=== PATIENT | male | born 1950 | race Caucasian/White ===

== ENCOUNTER → 2018-01-19 09:41 | Outpatient (CLI) | payer MEDICARE, SELFPAY ==
--- NOTE | 2018-01-19 09:56 | XR_ITS ---
XR chest 2V HISTORY: ITS.REASON: HTN, AMIODARONE THERAPY ORDERING PHYSICIAN: Referral Provider, PATIENT AGE: 67 years COMPARISON: None FINDINGS: The cardiomediastinal silhouette and pulmonary vascularity are within normal limits. Minimal lateral view there is nodularity along the infrahilar region. This may only be due to overlapping vessels. Follow-up recommended to exclude possibility of a developing nodule. No obvious nodule evident on the frontal view.. There are degenerative changes in the thoracic spine No acute bony abnormalities. IMPRESSION: 1. No acute finding. 2. No evidence of amiodarone lung toxicity. 3. Nodular density on the lateral view which may be due to vascular overlap. Recommend follow-up radiograph in 6-8 weeks to confirm stability. Alternatively, a CT scan could also performed
== END ==
PROVIDERS: PCP Family Medicine
DX: E78.49 Other hyperlipidemia (principal); Z79.899 Other long term (current) drug therapy
CPT/HCPCS: 71046

== ENCOUNTER → 2019-03-23 09:28 | Outpatient (CLI) | payer MEDICARE, SELFPAY ==
[2019-03-23 09:46] LABS: Basophils # 0.1 K/mm3 (0-0.2); Basophils % 0.7 % (0.1-2.0); Eosinophils # 0.2 K/mm3 (0.0-0.4); Eosinophils % 2.3 % (0.1-12.0); Hematocrit 49.7 % (42.0-52.0); Hemoglobin 16.7 g/dL (14.1-18.0); Lymphocytes # 2.1 K/mm3 (0.7-4.5); Mean Corpuscular HGB Conc 33.6 g/dL (31.8-35.4); Mean Corpuscular Hemoglobin 31.1 pg (27.0-31.2); Mean Corpuscular Volume 92.6 fl (80-94); Mean Platelet Volume 7.6 fl (7.4-10.4); Monocytes # 0.5 K/mm3 (0.1-1.0); Monocytes % 6.8 % (1.7-9.3); Neutrophils # 4.6 K/mm3 (1.8-7.8); Neutrophils % 62.2 % (37.0-80.0); Platelet Count 288 K/mm3 (142-424); Red Blood Count 5.37 M/mm3 (4.60-6.20); Red Cell Distribution Width 13.5 % (11.5-17.5); White Blood Count 7.4 K/mm3 (4.8-10.8)
[2019-03-23 12:27] LABS: Alanine Aminotransferase 36 U/L (12-78); Albumin Level 3.9 gm/dL (3.4-5.0); Alkaline Phosphatase 106 U/L (46-116); Anion Gap 16.8 mEq/L (5-15); Aspartate Amino Transferase 15 U/L (15-37); Bilirubin,Direct 0.2 mg/dL (0.0-0.2); Bilirubin,Indirect 0.5 mg/dL (0.0-0.9); Bilirubin,Total 0.7 mg/dL (0.2-1.0); Blood Urea Nitrogen 16 mg/dL (7-18); Carbon Dioxide 25 mmol/L (21.0-32.0); Chloride 103 mmol/L (98-107); Chol/HDL Ratio 2.6 (1-3.5); Cholesterol 172 mg/dL (140-200); Creatinine,Serum 0.96 mg/dL (0.70-1.30); Estimated Glomerular Filt Rate 78 ml/min (>60); GFR (African American) 94 ML/MIN (>60); HDL Cholesterol 67 mg/dL (27-67); LDL Cholesterol 87 mg/dL (0-130); Potassium 3.8 mmoL/L (3.5-5.1); Sodium 141 mmol/L (136-145); Thyroid Stimulating Hormone 2.33 uIU/ml (0.358-3.740); Total Protein,Serum 7.1 gm/dL (6.4-8.2); Triglycerides 89 mg/dL (30-200); VLDL Cholesterol 18 mg/dL (0-40)
[2019-03-23 12:34] LABS: Calcium 9.3 mg/dL (8.5-10.1); Glucose 137 mg/dL (74-106)
== END ==
PROVIDERS: Visit Provider Internal Medicine Cardiovascular Disease
DX: E78.49 Other hyperlipidemia (principal)
CPT/HCPCS: 36415; 80048; 80061; 80076; 84443; 85025

== ENCOUNTER → 2020-10-31 16:30 | Outpatient (CLI) | payer MEDICARE, SELFPAY ==
--- NOTE | 2020-10-31 16:40 | XR_ITS ---
PROCEDURE INFORMATION: Exam: XR Left Foot Exam date and time: 10/31/2020 4:40 PM Age: 69 years old Clinical indication: Left; Patient HX: Foot pain; Additional info: Lt foot pain (per PT, drs' office was closed at this time) TECHNIQUE: Imaging protocol: XR Left foot. Views: 3 or more views. COMPARISON: No relevant prior studies available. FINDINGS: Bones/joints: Degenerative changes of the ankle, midfoot and interphalangeal joints. Large calcaneal spur. Large enthesophyte at the Achilles tendon insertion. No acute fracture or dislocation. Soft tissues: Normal. IMPRESSION: Chronic changes described above.
== END ==
PROVIDERS: PCP Family Medicine; Visit Provider Family Medicine
DX: M79.672 Pain in left foot (principal)
CPT/HCPCS: 73630

== ENCOUNTER 2021-01-27 10:43 | Emergency (ER) | payer MEDICARE, SELFPAY ==
[2021-01-27 10:44] VITALS: BP 122/74; PULSE 75; RESP 24; TEMP 36.7; O2SAT 95; BMI 35.8
--- NOTE | 2021-01-27 11:14 | XR_ITS ---
PROCEDURE: XR CHEST 2V CLINICAL HISTORY: cough, soa COMPARISON: No exams were available for comparison FINDINGS: The lung ambriz are well expanded. There are subtle ill-defined opacities in the right perihilar region and right lower lobe. The right upper lung field and left lung ambriz are clear except for minimal discoid atelectasis at the left cardiophrenic angle. Cardiac size is normal and there is no pulmonary congestion and there is no pleural fluid. There is moderate degenerate change right shoulder with subacromial stenosis and spurring of the AC joint. IMPRESSION: Ill-defined opacities right lower lung field suggesting early diffuse pneumonic infiltrate Dictated by: Dr. Angelito Aponte MD 01/27/2021 11:31 Dr. Angelito Aponte MD in [place] 01/27/2021 11:31
--- NOTE | 2021-01-27 11:26 | HMH.EDUTC ---
[facility] [place] Disposition Clinical Impression: Pneumonia Qualifiers: Pneumonia type: due to unspecified organism Laterality: right Lung location: lower lobe of lung Qualified Code(s): J18.9 - Pneumonia, unspecified organism Disposition: Home, Self-Care Condition on Discharge: Good Instructions: Sinusitis, Acute Bronchitis, DI for Sinusitis, DI for Cough -- Adult Additional Instructions: ? Start antibiotic today. Be sure to complete entire prescription even if feeling better ? Monitor temp. Tylenol every 4 hours as needed and / or ibuprofen every 6 hours as needed ( As long as your primary care physician has told you that it ok to take both. For fever/aches/pains ER if no less than 101 despite Tylenol or Motrin ? Humidifier/vaporizer or hot steamy shower Go straight to ER if any worsening of shortness of breath or any life threatening symptoms *Tessalon Perles will not cause drowsiness but use at bedtime to help stop cough so that you may get some rest. Follow up IMMEDIATELY for new or worsening of symptoms OR no noticeable improvement over the next 48-72 hours. 911 immediately for any life threatening symptoms such as chest pain or difficulty breathing Prescriptions: Fluticasone Propionate [Flonase 50mcg nasal spray 16gm] 1 spr NS DAILY #1 each Transmission Status: Received by [id number] Cefdinir [Omnicef 300mg Capsule] 300 mg PO BID #20 cap Transmission Status: Received by [id number] Benzonatate [Tessalon Perle 100mg Cap*] 100 mg PO TID PRN #30 cap PRN Reason: Cough Transmission Status: Received by [id number] Referrals: Dino Miller MD [Primary Care Provider] - As needed Time of Disposition: 11:57 Medical Decision Making - Andre Inquiry Pt receiving controlled substance: No Andre was queried for this patient: No Vital Signs: 01/27/21 10:44 01/27/21 11:31 Temperature 98.1 F 98.1 F Temperature Source Oral Oral Pulse Rate 75 Pulse Rate [Left Radial] 75 Respiratory Rate 24 24 Blood Pressure 122/74 Blood Pressure [Right Arm] 122/74 Blood Pressure Mean [Right Arm] 90 Blood Pressure Source [Right Arm] Automatic Cuff Blood Pressure Position [Right Arm] Sitting 02 Sat by Pulse Oximetry 95 Oxygen Delivery Method Room Air Orders (Tests/Meds): ED MEDICATIONS Discontinued Medications Generic Name Dose Route Start Last Admin Trade Name David PRN Reason Stop Dose Admin Ceftriaxone Sodium 1 gm 01/27/21 11:51 01/27/21 12:13 Ceftriaxone 1gm Vial IM 01/27/21 11:52 1 gm ONCE ONE Administration Lidocaine HCl 0 ml 01/27/21 11:53 01/27/21 12:13 Lidocaine 1% 5ml Pf Vial IM 01/27/21 11:54 2.5 ml ONCE ONE Administration - Radiology Data #1 Image(s): Chest Image Reviewed: Yes I have reviewed radiologist's interpretation Ill-defined opacities right lower lung field suggesting early diffuse pneumonic infiltrate [facility] [place] HPI - General Stated complaint: cough since 1007 Time Seen by Provider: 01/27/21 11:26 Mode of Arrival: Ambulatory Source of Information: Patient Limitations: No Limitations Description of Symptoms (Recalled from Triage Doc. by RN): bad cough, soa, cant really eat, weak after being in the garden 3 weeks ago HEENT Symptoms (Recalled from RN notes): Yes Resp Symptoms (Recalled from RN notes): Yes Skin Symptoms (Recalled from RN notes): No MS Symptoms (Recalled from RN notes): No Functional Status (Recalled from RN notes): na - History of Present Illness Provider Complaint: Patient states that he was working in the garden about 3 weeks ago bent over and noticed he was having some sinus pain and pressure and felt like his ears was full and stopped up States that since then he has continued to get worse and having a cough States that his sinuses will be congested then start running and then stop up again and feels like it is draining in the back of his throat States that at times he will cough so much it makes him feel SOB States that today
[2021-01-27 11:31] VITALS: BP 122/74; PULSE 75; RESP 24; TEMP 36.7; O2SAT 95
== END 2021-01-27 12:31 | disposition home or self-care (01) ==
PROVIDERS: Emergency Provider Nurse Practitioner; PCP Family Medicine
DX: J18.9 Pneumonia, unspecified organism (principal)
CPT/HCPCS: G0463; 71046; 96372; 99202

== ENCOUNTER → 2021-02-13 12:27 | Outpatient (CLI) | payer MEDICARE, SELFPAY ==
--- NOTE | 2021-02-13 12:33 | XR_ITS ---
PROCEDURE: XR CHEST 2V CLINICAL HISTORY: PNEUMONIA OF RT LOWER LOBE DUE TO INFECTIOUS ORGANISM COMPARISON: CR XR CHEST 2V from 01/27/2021 FINDINGS: There has been clearing of the minimal ill-defined infiltrate in the right perihilar region, minimal ill-defined infiltrate remains at the right base. The right upper lung field and left lung ambriz are clear. Cardiac size is normal and vascularity is normal and there is no pleural fluid. IMPRESSION: Resolving minimal pneumonic infiltrate right lower lobe Dictated by: Dr. Angelito Aponte MD 02/13/2021 12:56 Dr. Angelito Aponte MD in [place] 02/13/2021 12:56
== END ==
PROVIDERS: PCP Nurse Practitioner; Visit Provider Nurse Practitioner
DX: J18.9 Pneumonia, unspecified organism (principal)
CPT/HCPCS: 71046

== ENCOUNTER → 2021-03-30 09:20 | Outpatient (POV) | payer MEDICARE, SELFPAY ==
[2021-03-30 09:53] VITALS: BP 170/93; PULSE 72; RESP 18; O2SAT 96; BMI 35.2
--- NOTE | 2021-03-30 10:11 | HMH.PMCON ---
Assessment and Plan (1) Acute herpes zoster neuropathy Status: Acute Category: Medical Code(s): B02.23 - Postherpetic polyneuropathy (2) Polyneuropathy Status: Acute Category: Medical Code(s): G62.9 - Polyneuropathy, unspecified - Assessment and plan all Dx Assessment and Plan for all problems:: Assessment: 1. Acute herpes zoster 2. Postherpetic neuralgia 3. Postherpetic polyneuropathy Plan: I discussed with the patient that he will benefit from a peripheral nerve block over the T8-T9 dermatomal distribution on the right. However, the patient is reluctant to undergo injection therapy due to his fear of needles and would like to trial topical medication first. I will prescribe him a compound cream today and I discussed with him that he can contact her clinic should he decide to undergo a peripheral nerve block if the pain persists. I discussed with patient he can continue the gabapentin as prescribed by his primary care physician. We will follow-up with this patient in 1 month for reassessment of his chronic pain symptoms. His he states that he HPI - Data of Consult Consult date: 03/30/21 Requesting Physician: Mirta Bacon APRN - Consult Narrative Reason for consult: shingles relatedpain History of present illness: This patient is a very pleasant 70-year-old white male who presents today for initial consultation for shingles related pain. He states that the pain started almost a year and a half ago around [facility] and states that the pain has since persisted. He states the pain started in his mid back with a sharp shooting pain wrapping around his ribs anteriorly towards his stomach. He describes the pain as a very intense sharp burning pain. Has already taken valacyclovir and completed his course. He is currently taking Lyrica 150 mg 1 tablet p.o. 3 times daily but he states that the pain remains uncontrolled. He has not taken gabapentin but states that as of recently he was switched over to gabapentin from Lyrica due to insurance reasons. He states that he will start gabapentin tonight and gradually wean off Lyrica and uptitrate on the gabapentin as directed by his primary care physician. He has not undergone any injection therapy or topical creams. He states he is very reluctant to undergo injection therapy because he is afraid of needles. CC: Mirta Bacon APRN [facility] History I have reviewed the patient's past medical history: Yes *Have you ever received a pneumonia vaccine?: No *Have you received a flu vaccine this season?: No - *Social History Smoking Status: Never smoker Alcohol Intake: never *Occupational Status:: unemployed *Travel in the last 8 weeks: None Family Hx:: No significant family history Review of Systems - Review of Systems 14 point review of system was negative unless stated above in the [facility] Meds Home Medications Medication Instructions Recorded Confirmed Type Amiodarone HCl [Amiodarone 100mg 100 mg PO DAILY 01/27/21 03/30/21 History Tab] Apixaban [Eliquis] 5 mg PO BID 01/27/21 03/30/21 History Dapagliflozin Propanediol [Farxiga] 5 mg PO DAILY 01/27/21 03/30/21 History Furosemide [Lasix 20mg tab] 20 mg PO DAILY 01/27/21 03/30/21 History Glimepiride 4 mg PO DAILY 01/27/21 03/30/21 History Metoprolol Succinate [Metoprolol 50 mg PO DAILY 01/27/21 03/30/21 History Succinate 50mg Tablet*] Pregabalin 150 mg PO DAILY 01/27/21 03/30/21 History Triamterene/Hydrochlorothiazid 1 each PO DAILY 01/27/21 03/30/21 History [Triamterene-Hctz 37.5-25 mg Tb] Fluticasone Propionate [Flonase 1 spr NS DAILY 03/30/21 03/30/21 History 50mcg nasal spray 16gm] Allergies Allergy/AdvReac Type Severity Reaction Status Date / Time No Known Allergies Allergy Verified 01/27/21 11:14 Objective Vital signs: Pulse Resp BP Pulse Ox 72 18 170/93 H 96 03/30/21 09:53 03/30/21 09:53 03/30/21 09:53 03/30/21 09:53 Narrative: Physical exam: Genera
== END ==
PROVIDERS: Visit Provider Family Medicine
DX: B02.23 Postherpetic polyneuropathy (principal); G62.9 Polyneuropathy, unspecified
CPT/HCPCS: 99202; G0463

== ENCOUNTER → 2021-04-30 09:07 | Outpatient (POV) | payer MEDICARE, SELFPAY ==
[2021-04-30 09:28] VITALS: BP 185/90; PULSE 63; RESP 18; O2SAT 95; BMI 35.2
--- NOTE | 2021-04-30 09:47 | P.CONS_ITS ---
[facility] Pain Management SOAP Note Subjective:: Patient is a 70-year-old white male who presents today for follow-up. He was seen in the clinic on 03/30/2021 for postherpetic neuralgia. He does have pain at the T8-T9 area with radiation along the nerve root into the right flank and right upper quadrant area. He does rate his pain today a 3 out of 10. He says he has some days which are worse than others. He says the pain does progressively worsen when wearing clothing that touches the area as well as wind. He is currently on gabapentin which is giving him some relief. He is still reluctant to undergo any type of injective therapy at this time. Review of Systems General: No recent weight changes, no fever, no sleep disturbances Respiratory: No cough, no shortness of air, no recurring pulmonary infections Cardiovascular/peripheral vascular: No chest pain, no palpitations, no edema, no shortness of breath Gastrointestinal: No new onset incontinence, normal bowel movements reported Genitourinary: No new onset incontinence Musculoskeletal: Right mid back pain with radiation into right flank and right upper quadrant Psychiatric: [Normal mood/affect] Neurological: [Denies weakness in extremities], [denies balance issues] Objective:: Physical exam General: Alert and oriented x3, no acute distress, pleasant and cooperative Lungs: Respirations even and unlabored, symmetrical chest expansion Eyes: PERRL Musculoskeletal: Flexion and extension of thoracic [spine] somewhat guarded secondary to pain, normal gait noted Neurological: Speech clear, no gross sensory deficit Assessment:: Postherpetic neuralgia, postherpetic polyneuropathy Plan:: Patient is still reluctant to proceed with injective therapy. We will add Cymbalta 30 mg on to his medication regimen. He will take this once daily to see if this does help with his neuropathic pain. He says if the pain does worsen he will consider injective therapy. We will see him back in a month to see if the medication has helped. Risks and benefits of the medication have been explained in detail to the patient. If side effects do present with the medication, patient has been advised to stop the medication immediately and call the clinic. The patient has been advised to consult with his/her primary care provider and pharmacist regarding drug-drug interaction of medications currently prescribed. Patient has been instructed to contact the clinic with any concerns before the next appointment. Dr. Grimaldo has reviewed this note and agrees with this plan of care. This note was dictated using voice recognition software and make contain errors or omissions. [facility] History I have reviewed the patient's past medical history: Yes *Have you ever received a pneumonia vaccine?: No *Have you received a flu vaccine this season?: No - *Social History Smoking Status: Never smoker Alcohol Intake: never *Occupational Status:: unemployed *Travel in the last 8 weeks: None Family Hx:: No significant family history
== END ==
PROVIDERS: Visit Provider Clinical Nurse Specialist Family Health
DX: B02.29 Other postherpetic nervous system involvement; B02.23 Postherpetic polyneuropathy
CPT/HCPCS: 99212; G0463

== ENCOUNTER → 2021-05-28 09:24 | Outpatient (POV) | payer MEDICARE, SELFPAY ==
[2021-05-28 10:19] VITALS: BP 141/85; PULSE 65; RESP 18; O2SAT 95; BMI 35.2
--- NOTE | 2021-05-28 10:40 | P.CONS_ITS ---
[facility] Pain Management SOAP Note Subjective:: Patient is a very pleasant 70-year-old white male who presents today for follow- up. He is currently being managed for postherpetic neuralgia and polyneuropathy related to herpes zoster. He continues to experience pain in the mid torso region along the T8-T9 dermatomal distribution on the right but states that the pain has improved with his current pain regimen. He is currently taking gabapentin 300 mg 1 tablet p.o. 3 times daily that is prescribed by Dr. Miller as well as duloxetine 30 nightly that is prescribed by her clinic. He states that since he started the duloxetine his sharp stabbing pain has almost gone away. However, he states that the pain still remains intolerable at this time. He still reluctant to undergo any injection therapy to help with his chronic pain symptoms. He rates his pain today as 8 out of 10. Objective:: General: Alert and oriented x3, no acute distress, pleasant and cooperative Lungs: Resps E/U, symmetric chest expansion Eyes: PERRL Musculoskeletal: Deep tendon reflexes were normal in bilateral lower extremities. Motor exam was grossly intact in the bilateral lower extremities, tenderness to palpation over the T8-T9 dermatomal distribution on the right Neurological: Speech is clear, lubrication servicer equal, no gross sensory deficits Assessment:: Herpes zoster resulting in postherpetic neuralgia and polyneuropathy Plan:: I discussed with the patient he should continue duloxetine 30 mg nightly. I discussed with the patient that he may benefit from increasing gabapentin to 1 tablet in the morning, 1 tablet in the afternoon, and 2 tablets at bedtime however I discussed with him he should first contact Dr. Miller as this is the prescribing physician for this medication. However should there be any issues Dr. Miller can reach out to our clinic and if needed we can take over prescribing gabapentin. He does not need any refills at this time on his duloxetine. We will follow-up with this patient in 1 month for reassessment of his chronic pain symptoms and medication refills. [facility] #[id number] prior directions reviewed and appropriate. [facility] History *Have you ever received a pneumonia vaccine?: No *Have you received a flu vaccine this season?: No - *Social History Smoking Status: Never smoker Alcohol Intake: never *Occupational Status:: unemployed *Travel in the last 8 weeks: None Family Hx:: No significant family history
== END ==
PROVIDERS: Visit Provider Anesthesiology Pain Medicine
DX: B02.23 Postherpetic polyneuropathy (principal); B02.29 Other postherpetic nervous system involvement
CPT/HCPCS: 99212; G0463

== ENCOUNTER → 2021-06-25 08:46 | Outpatient (POV) | payer MEDICARE, SELFPAY ==
[2021-06-25 09:33] VITALS: BP 187/97; PULSE 65; RESP 20; TEMP 36.4; O2SAT 97; BMI 35.2
--- NOTE | 2021-06-25 09:44 | P.CONS_ITS ---
[facility] Pain Management SOAP Note Subjective:: Patient is a pleasant 70-year-old male who presents today for follow-up. He is currently being managed for postherpetic neuralgia and polyneuropathy related to herpes zoster around his torso. When we last saw this patient, we had recommended that the patient take his gabapentin 4 times a day to help with some of his postherpetic neuralgia. Since the change, patient states that he is about 20 to 30% better and has been able to reassess activity. He does say that he is slowly improving but he still continues to have tenderness around his torso. He is also taking duloxetine 30 mg at bedtime. Denies any side effects from these medications. He rates his pain today as 6 out of 10. Patient also states that he fell last Tuesday on his left wrist. He denies any worsening pain. It is swollen. He does not think it is broken since he can still move his wrist without difficulty. He will be seeing Dr. Miller this morning to evaluate this injury further. General: No recent weight changes, no fever, no sleep disturbances Respiratory: No cough, no shortness of air, no recurring pulmonary infections Cardiovascular/peripheral vascular: No chest pain, no palpitations, no edema, no shortness of breath Gastrointestinal: No new onset incontinence, normal bowel movements reported Genitourinary: No new onset incontinence Musculoskeletal: Mid torso pain, left wrist pain Psychiatric: [Normal mood/affect] Neurological: [Denies weakness in extremities], [denies balance issues] Objective:: General: Alert and oriented x3, no acute distress, pleasant and cooperative, [on room air] Lungs: Respirations even and unlabored, symmetrical chest expansion Eyes: PERRL Musculoskeletal: Mid torso is tender to palpation. His left wrist/hand has some swelling. Patient can flex and extend his wrist however there seemed to be some mild limitations may be because of the swelling. There is no noticeable contusion, change of color, temperature changes. Neurological: Speech clear, no gross sensory deficit Assessment:: Herpes zoster resulting in postherpetic neuralgia and polyneuropathy Left wrist pain Plan:: Patient states that he does feel like he is slowly getting better with the medications that is prescribed to him. He reports no issues with the medications. Dr. Miller is the one prescribing these medications. I discussed with the patient that if his postherpetic neuralgia gets worse, we can try to do some peripheral nerve blocks to help with some of these comfort. He is going to follow-up with Dr. Miller this morning about his left wrist. Follow-up in 1 month Patient has been instructed to contact the clinic with any concerns before the next appointment. Dr. Grimaldo has reviewed this note and agrees with this plan of care. This note was dictated using voice recognition software and make contain errors or omissions. [facility] History *Have you ever received a pneumonia vaccine?: No *Have you received a flu vaccine this season?: No - *Social History Smoking Status: Never smoker Alcohol Intake: never *Occupational Status:: retired *Travel in the last 8 weeks: None Family Hx:: No significant family history
== END ==
PROVIDERS: Visit Provider Student in an Organized Health Care Education/Training Program
DX: M25.532 Pain in left wrist; B02.23 Postherpetic polyneuropathy
CPT/HCPCS: 73110; 73130; 99212; G0463

== ENCOUNTER → 2021-06-25 11:03 | Outpatient (CLI) | payer MEDICARE, SELFPAY ==
--- NOTE | 2021-06-25 11:09 | XR_ITS ---
FINAL REPORT CLINICAL HISTORY: INJURY, fell off ladder, swelling FINDINGS: LEFT WRIST Three views demonstrate no definite acute fracture or dislocation. The visualized joint spaces are normally aligned. There is mild soft tissue swelling over the dorsum of the wrist. IMPRESSION: Mild soft tissue swelling with no definite acute bony abnormality. Reviewed, Interpreted and Dictated by Esvin Garnica MD Transcribed by Cassidy Guardado Authenticated by Esvin Garnica MD on 06/25/2021 12:57:34 PM [facility]
--- NOTE | 2021-06-25 11:09 | XR_ITS ---
FINAL REPORT CLINICAL HISTORY: INJURY, fell off ladder, swelling FINDINGS: LEFT HAND Three views of the left hand were obtained. No skin marker was placed to indicate point of pain. There is no acute fracture. There is no dislocation. There are mild to moderate hypertrophic changes in the DIP and PIP joints consistent with osteoarthritis. The soft tissues are unremarkable. IMPRESSION: No acute bony abnormality. Reviewed, Interpreted and Dictated by Esvin Garnica MD Transcribed by Cassidy Guardado Authenticated by Esvin Garnica MD on 06/25/2021 12:57:[address] [facility]
== END ==
PROVIDERS: PCP Family Medicine; Visit Provider Physician Assistant
DX: S69.92XA Unspecified injury of left wrist, hand and finger(s), initial encounter (principal)
CPT/HCPCS: 73110; 73130

== ENCOUNTER → 2021-07-23 08:40 | Outpatient (POV) | payer MEDICARE, SELFPAY ==
[2021-07-23 08:49] VITALS: BP 164/78; PULSE 74; RESP 18; TEMP 37.2; O2SAT 97; BMI 35.2
--- NOTE | 2021-07-23 09:26 | P.CONS_ITS ---
[facility] Pain Management SOAP Note Subjective:: Patient is a pleasant 70-year-old male who presents today for follow-up. He is currently being managed for postherpetic neuralgia and polyneuropathy related to herpes zoster around his right mid torso. Patient is currently taking duloxetine 30 mg at bedtime and gabapentin 300 mg 3 times a day that are prescribed by Dr. Miller. He says that he had a bad episode last week where it was very painful trying to put on his clothes. Today, patient states that he is about 70 to 80% better. Rates pain as 5 out of 10. [facility] #[id number] with Morphine equivalent of 0. Review of Systems: General: No recent weight changes, no fever, no sleep disturbances Respiratory: No cough, no shortness of air, no recurring pulmonary infections Cardiovascular/peripheral vascular: No chest pain, no palpitations, no edema, no shortness of breath Gastrointestinal: No new onset incontinence, normal bowel movements reported Genitourinary: No new onset incontinence Musculoskeletal: Mid back pain Psychiatric: [Normal mood/affect] Neurological: [Denies weakness in extremities], [denies balance issues] Objective:: Physical Exam: General: Alert and oriented x3, no acute distress, pleasant and cooperative, [on room air] Lungs: Respirations even and unlabored, symmetrical chest expansion Eyes: PERRL Musculoskeletal: Tenderness to palpation around the right mid torso Neurological: Speech clear, no gross sensory deficit Assessment:: Postherpetic neuralgia, polyneuropathy Plan:: Patient continues to have relief with the gabapentin 300 mg 3 times a day and Cymbalta 30 mg daily. Patient states that he was having restlessness in his sleep. I discussed with him that the Cymbalta can cause some restlessness. He can try stopping this medication for about a week. If his symptoms does not resolve he can continue the Cymbalta. I discussed with the patient that if he gets any flareups, he can certainly do peripheral nerve blocks. Patient is a bit hesitant to move forward with this injective therapy because he does not like needles. Follow-up in 3 months Patient has been instructed to contact the clinic with any concerns before the next appointment. Dr. Grimaldo has reviewed this note and agrees with this plan of care. This note was dictated using voice recognition software and make contain errors or omissions. [facility] History *Have you ever received a pneumonia vaccine?: No *Have you received a flu vaccine this season?: No - *Social History Smoking Status: Never smoker Alcohol Intake: never *Occupational Status:: retired *Travel in the last 8 weeks: None Family Hx:: No significant family history
== END ==
PROVIDERS: Visit Provider Student in an Organized Health Care Education/Training Program
DX: B02.29 Other postherpetic nervous system involvement; G62.9 Polyneuropathy, unspecified
CPT/HCPCS: 99212; G0463

== ENCOUNTER → 2022-03-30 12:30 | Outpatient (CLI) | payer MEDICARE, SELFPAY ==
[2022-03-30 18:43] LABS: Alanine Aminotransferase 41 U/L (12-78); Albumin Level 4.3 g/dl (3.5-5.0); Alkaline Phosphatase 113 U/L (38-126); Aspartate Amino Transferase 36 U/L (17-59); Bilirubin,Direct 0.2 mg/dl (0.0-0.4); Bilirubin,Indirect 0.6 mg/dL (0.0-0.9); Bilirubin,Total 0.8 mg/dl (0.2-1.3); Bilirubin,Unconjugated 0.6 mg/dL (0.0-1.1); Cholesterol 189 mg/dl (140-200); HDL Cholesterol 63 mg/dl (40-60); Total Protein,Serum 6.9 g/dl (6.3-8.2); Triglycerides 161 mg/dl (30-150); VLDL Cholesterol 32 mg/dL (0-40)
[2022-03-30 18:54] LABS: Direct LDL Cholesterol 95.28 mg/dL (100-129)
== END ==
PROVIDERS: PCP Nurse Practitioner; Visit Provider Nurse Practitioner
DX: E78.5 Hyperlipidemia, unspecified (principal)
CPT/HCPCS: 80061; 80076

== ENCOUNTER → 2022-09-16 10:23 | Outpatient (CLI) | payer MEDICARE, SELFPAY ==
[2022-09-16 18:52] LABS: Hemoglobin A1C 6.6 % (4.0-6.0)
[2022-09-16 19:08] LABS: Alanine Aminotransferase 32 U/L (12-78); Albumin Level 4.3 g/dl (3.5-5.0); Albumin/Globulin Ratio 1.7 (1.1-1.8); Alkaline Phosphatase 118 U/L (38-126); Anion Gap 18.5 mEq/L (5-15); Aspartate Amino Transferase 36 U/L (17-59); Bilirubin,Total 1.2 mg/dl (0.2-1.3); Blood Urea Nitrogen 20 mg/dl (9-20); Calcium 8.9 mg/dl (8.4-10.2); Carbon Dioxide 23 mmol/L (22.0-30.0); Chloride 102 mmol/L (98-107); Chol/HDL Ratio 2.4 (1-3.5); Cholesterol 158 mg/dl (140-200); Estimated Glomerular Filt Rate 95 ml/min (>60); GFR (African American) 115 ML/MIN (>60); Globulin 2.6 g/dL (1.3-3.2); Glucose 115 mg/dl (74-100); HDL Cholesterol 67 mg/dl (40-60); Potassium 3.5 mmoL/L (3.5-5.1); Sodium 140 mmol/L (136-145); Total Protein,Serum 6.9 g/dl (6.3-8.2); Triglycerides 105 mg/dl (30-150); VLDL Cholesterol 21 mg/dL (0-40)
[2022-09-16 19:20] LABS: Direct LDL Cholesterol 71.35 mg/dL (100-129)
[2022-09-16 19:38] LABS: Prostate Specific Ag Screen 9.5 ng/ml (0.0-4.0)
== END ==
PROVIDERS: PCP Nurse Practitioner; Visit Provider Nurse Practitioner
DX: E11.9 Type 2 diabetes mellitus without complications (principal); E78.5 Hyperlipidemia, unspecified; G47.00 Insomnia, unspecified; I10 Essential (primary) hypertension; Z12.5 Encounter for screening for malignant neoplasm of prostate; Z79.84 Long term (current) use of oral hypoglycemic drugs
CPT/HCPCS: 80053; 80061; 83036; 84443; G0103

== ENCOUNTER → 2023-03-10 07:11 | Outpatient (CLI) | payer MEDICARE, SELFPAY ==
[2023-03-10 20:08] LABS: Alanine Aminotransferase 31 U/L (12-78); Albumin Level 3.9 g/dl (3.5-5.0); Albumin/Globulin Ratio 1.5 (1.1-1.8); Alkaline Phosphatase 98 U/L (38-126); Anion Gap 11.7 mEq/L (5-15); Aspartate Amino Transferase 31 U/L (17-59); Bilirubin,Total 0.8 mg/dl (0.2-1.3); Blood Urea Nitrogen 21 mg/dl (9-20); Calcium 8.6 mg/dl (8.4-10.2); Carbon Dioxide 24 mmol/L (22.0-30.0); Chloride 103 mmol/L (98-107); Estimated Glomerular Filt Rate 83 ml/min (>60); GFR (African American) 100 ML/MIN (>60); Globulin 2.6 g/dL (1.3-3.2); Glucose 183 mg/dl (74-100); Potassium 3.7 mmoL/L (3.5-5.1); Sodium 135 mmol/L (136-145); Total Protein,Serum 6.5 g/dl (6.3-8.2)
[2023-03-10 22:06] LABS: Hemoglobin A1C 7.5 % (4.0-6.0)
== END ==
PROVIDERS: PCP Family Medicine; Visit Provider Family Medicine
DX: E11.9 Type 2 diabetes mellitus without complications (principal); Z79.84 Long term (current) use of oral hypoglycemic drugs
CPT/HCPCS: 80053; 83036

== ENCOUNTER 2023-07-21 10:16 | Outpatient (CLI) | payer MEDICARE, SELFPAY ==
[2023-07-21 18:31] LABS: Basophils # 0.1 K/mm3 (0-0.2); Basophils % 0.8 % (0.1-2.0); Eosinophils # 0.1 K/mm3 (0.0-0.4); Eosinophils % 2.2 % (0.1-12.0); Hemoglobin 17.8 g/dL (14.1-18.0); Lymphocytes # 1.7 K/mm3 (0.7-4.5); Lymphocytes % 26.9 % (10-50); Mean Corpuscular Hemoglobin 31.6 pg (27.0-31.2); Mean Corpuscular Volume 95.9 fl (80-94); Mean Platelet Volume 9.2 fl (7.4-10.4); Monocytes # 0.4 K/mm3 (0.1-1.0); Monocytes % 6.3 % (1.7-9.3); Neutrophils % 63.9 % (37.0-80.0); Platelet Count 251 K/mm3 (142-424); Red Blood Count 5.63 M/mm3 (4.60-6.20); Red Cell Distribution Width 14.3 % (11.5-17.5); White Blood Count 6.3 K/mm3 (4.8-10.8)
[2023-07-21 18:54] LABS: Microalbumin/Creatinine Ratio 6.6
[2023-07-21 18:57] LABS: Alanine Aminotransferase 32 U/L (12-78); Albumin Level 4.3 g/dl (3.5-5.0); Alkaline Phosphatase 90 U/L (38-126); Aspartate Amino Transferase 31 U/L (17-59); Bilirubin,Direct 0.2 mg/dl (0.0-0.4); Bilirubin,Indirect 0.8 mg/dL (0.0-0.9); Bilirubin,Unconjugated 0.7 mg/dL (0.0-1.1); Chol/HDL Ratio 3.5 (1-3.5); Cholesterol 192 mg/dl (140-200); Creatinine,Urine Random 103 mg/dL (Not Estab.); HDL Cholesterol 55 mg/dl (40-60); Total Protein,Serum 6.6 g/dl (6.3-8.2); Triglycerides 142 mg/dl (30-150); VLDL Cholesterol 28 mg/dL (0-40)
[2023-07-21 19:02] LABS: Alanine Aminotransferase 32 U/L (12-78); Albumin Level 4.1 g/dl (3.5-5.0); Albumin/Globulin Ratio 1.7 (1.1-1.8); Alkaline Phosphatase 90 U/L (38-126); Anion Gap 9.8 mEq/L (5-15); Aspartate Amino Transferase 31 U/L (17-59); Bilirubin,Total 0.8 mg/dl (0.2-1.3); Blood Urea Nitrogen 20 mg/dl (9-20); Calcium 9.2 mg/dl (8.4-10.2); Carbon Dioxide 25 mmol/L (22.0-30.0); Chloride 110 mmol/L (98-107); Estimated Glomerular Filt Rate 95 ml/min (>60); GFR (African American) 115 ML/MIN (>60); Globulin 2.4 g/dL (1.3-3.2); Glucose 146 mg/dl (74-100); Potassium 3.8 mmoL/L (3.5-5.1); Sodium 141 mmol/L (136-145); Total Protein,Serum 6.5 g/dl (6.3-8.2)
[2023-07-21 19:09] LABS: Direct LDL Cholesterol 90.55 mg/dL (100-129)
[2023-07-21 19:28] LABS: Prostate Specific Ag, Diagnost 13.1 ng/ml (0.0-4.0)
[2023-07-21 20:37] LABS: Hemoglobin A1C 7.4 % (4.0-6.0)
== END 2023-07-21 23:59 | disposition home or self-care (01) ==
LOC: LAB.DROPOF 07-22 10:24
PROVIDERS: Nurse Practitioner; PCP Family Medicine; Visit Provider Family Medicine
DX: E11.9 Type 2 diabetes mellitus without complications (principal); I10 Essential (primary) hypertension; E78.5 Hyperlipidemia, unspecified; R97.20 Elevated prostate specific antigen [PSA]; Z79.84 Long term (current) use of oral hypoglycemic drugs; Z87.891 Personal history of nicotine dependence; Z79.899 Other long term (current) drug therapy
CPT/HCPCS: 80053; 80061; 80076; 82043; 82570; 83036; 84153; 85025

== ENCOUNTER 2024-03-29 19:25 | Outpatient (CLI) | payer MEDICARE, SELFPAY ==
[2024-03-29 21:20] LABS: Alanine Aminotransferase 29 U/L (12-78); Albumin/Globulin Ratio 1.8 (1.1-1.8); Alkaline Phosphatase 98 U/L (38-126); Anion Gap 13.4 mEq/L (5-15); Aspartate Amino Transferase 28 U/L (17-59); Blood Urea Nitrogen 21 mg/dl (9-20); Calcium 9.3 mg/dl (8.4-10.2); Carbon Dioxide 25 mmol/L (22.0-30.0); Chloride 103 mmol/L (98-107); Chol/HDL Ratio 3.1 (1-3.5); Cholesterol 157 mg/dl (140-200); Estimated Glomerular Filt Rate 94 ml/min (>60); GFR (African American) 114 ML/MIN (>60); Globulin 2.2 g/dL (1.3-3.2); Glucose 149 mg/dl (74-100); HDL Cholesterol 50 mg/dl (40-60); Potassium 3.4 mmoL/L (3.5-5.1); Sodium 138 mmol/L (136-145); Total Protein,Serum 6.2 g/dl (6.3-8.2); Triglycerides 140 mg/dl (30-150); VLDL Cholesterol 28 mg/dL (0-40)
[2024-03-29 21:34] LABS: Direct LDL Cholesterol 85.78 mg/dL (100-129)
[2024-03-29 21:43] LABS: Hemoglobin A1C 7.4 % (4.0-6.0)
[2024-03-29 21:54] LABS: Prostate Specific Ag Screen 12.9 ng/ml (0.0-4.0)
== END 2024-03-29 23:59 | disposition home or self-care (01) ==
LOC: LAB 19:27
PROVIDERS: PCP Family Medicine; Visit Provider Family Medicine
DX: Z12.5 Encounter for screening for malignant neoplasm of prostate (principal); E78.5 Hyperlipidemia, unspecified; E11.9 Type 2 diabetes mellitus without complications; Z79.84 Long term (current) use of oral hypoglycemic drugs; R97.20 Elevated prostate specific antigen [PSA]
CPT/HCPCS: 80053; 80061; 83036; G0103

== ENCOUNTER 2024-06-14 16:00 | Outpatient (CLI) | payer MEDICARE, SELFPAY ==
[2024-06-14 19:38] LABS: Hemoglobin A1C 7.7 % (4.0-6.0)
[2024-06-14 20:04] LABS: Albumin Level 4.6 g/dl (3.5-5.0); Chloride 103 mmol/L (98-107); Potassium 3.4 mmoL/L (3.5-5.1); Sodium 136 mmol/L (136-145)
[2024-06-14 20:06] LABS: Alanine Aminotransferase 39 U/L (12-78); Aspartate Amino Transferase 35 U/L (17-59); Blood Urea Nitrogen 18 mg/dl (9-20); Estimated Glomerular Filt Rate 94 ml/min (>60); GFR (African American) 114 ML/MIN (>60)
[2024-06-14 20:07] LABS: Alkaline Phosphatase 97 U/L (38-126); Anion Gap 12.4 mEq/L (5-15); Calcium 9.3 mg/dl (8.4-10.2); Carbon Dioxide 24 mmol/L (22.0-30.0); Globulin 2.3 g/dL (1.3-3.2); Glucose 115 mg/dl (74-100); Magnesium 1.8 mg/dl (1.6-2.3); Total Protein,Serum 6.9 g/dl (6.3-8.2)
== END 2024-06-14 23:59 | disposition home or self-care (01) ==
LOC: LAB.DROPOF 06-15 10:16
PROVIDERS: PCP Family Medicine; Visit Provider Family Medicine
DX: E11.9 Type 2 diabetes mellitus without complications (principal); I10 Essential (primary) hypertension; Z87.891 Personal history of nicotine dependence
CPT/HCPCS: 80053; 83036; 83735

== ENCOUNTER 2024-10-09 10:39 | Outpatient (CLI) | payer MEDICARE, SELFPAY ==
[2024-10-09 20:28] LABS: Anion Gap 18.7 mEq/L (5-15); Blood Urea Nitrogen 19 mg/dl (9-20); Calcium 9.6 mg/dl (8.4-10.2); Carbon Dioxide 24 mmol/L (22.0-30.0); Chloride 99 mmol/L (98-107); Creatinine,Serum 0.90 mg/dl (0.66-1.25); Estimated Glomerular Filt Rate 82 ml/min (>60); GFR (African American) 100 ML/MIN (>60); Glucose 142 mg/dl (74-100); Potassium 3.7 mmoL/L (3.5-5.1); Sodium 138 mmol/L (136-145)
--- OUTSIDE RECORDS SUMMARY | 2024-10-10 10:17 | XMS_ITS | Clinical Summary ---
Author Organization [facility] Address [address] [place] [id number] Phone Care Team Providers Care Biometric Fingerprinting Technician Name Role Phone Tyrese Bonilla MD Unavailable [phone] Thom Miller MD Primary Care Provider [phone] Allergies Active Allergy Reactions Criticality Noted Date Comments Diltiazem Hcl 01/06/2012 Disopyramide 01/06/2012 Medications loperamide (IMODIUM A-D) 2 mg Oral TabletIndicatio ns:Arrhythmia,H ypertension Take 2 mg by mouth 2 times daily. Active CHOLECALCIFEROL , VITAMIN D3, ORALIndications :Hypertension,A rrhythmia,Hyper lipidemia Take 1,000 Units by mouth daily. Active fUROsemide (LASIX) 20 mg Oral Tablet Take 20 mg by mouth daily. Active cyanocobalamin 1,000 mcg Oral Tablet Take 1,000 mcg by mouth daily. Active glimepiride (AMARYL) 4 mg Oral Tablet Take 4 mg by mouth daily. Active ELIQUIS 5 mg Oral Tablet TAKE 1 TABLET TWICE A DAY 180 Tab 2 0 Active dapagliflozin (FARXIGA) 5 mg Oral Tablet Take by mouth daily. Active pregabalin (LYRICA) 75 mg Oral Capsule Take 75 mg by mouth 3 times daily. Active HYDROcodone-tanya taminophen (NORCO) 7.5-325 mg Oral Tablet Take 1 Tab by mouth every 8 hours as needed. Active levoFLOXacin (LEVAQUIN) 500 mg Oral Tablet 1 Active temazepam (RESTORIL) 30 mg Oral Capsule 2 Active gabapentin (NEURONTIN) 300 mg Oral Capsule 2 Active metoprolol succinate (TOPROL-XL) 50 mg Oral Tablet Sustained Release 24 hr TAKE 1 TABLET IN THE MORNING AND ONE-HALF (1/2) TABLET IN THE EVENING 135 Tablet 3 5 Active triamterene-hyd rochlorothiazid e (DYAZIDE) 37.5-25 mg Oral Capsule TAKE 1 CAPSULE DAILY 90 Capsule 3 5 Active amiodarone (PACERONE) 200 mg Oral Tablet TAKE 1 TABLET DAILY 90 Tablet 3 5 Active potassium chloride (MICRO-K) 10 mEq Oral Capsule, Sustained Release Take 10 mEq by mouth daily. 5 Active LORazepam (ATIVAN) 2 mg Oral Tablet Take 2 mg by mouth every 6 hours as needed for Anxiety. 5 Active ketoconazole (NIZORAL) 2 % Top Cream Apply topically daily. 5 Active Active Problems Problem Noted Date Diagnosed Date Hypertension Hyperlipidemia Diabetes mellitus Arrhythmia Overview (02/22/2012): A Fib Resolved Problems Problem Noted Date Diagnosed Date Resolved Date Arrhythmia 02/22/2012 Medical History Medical History Date Comments Hyperlipidemia Hypertension Diabetes mellitus (HCC) Arrhythmia A Fib Family History Medical History Relation Name Comments Heart Disease Mother Heart Failure Mother Relation Name Status Comments Father (Age 62) Mother (Age 77) Social History Tobacco Use Types Packs/Day Years Used Date Smoking Tobacco: Never Smokeless Tobacco: Never Tobacco Cessation:Counseling Given: Not Answered Alcohol Use Standard Drinks/Week Comments No 0 (1 standard drink = 0.6 oz pur e alcohol) Sex and Gender Information Value Date Recorded Sex Assigned at Not on file Legal Sex Male 8:16 PM EDT Gender Identity Not on file Sexual Orientation Not on file Obstetrics History Last Filed Vital Signs Vital Sign Reading Time Taken Comments Blood Pressure 132/80 07/03/2024 10:26 AM EDT Pulse 65 07/03/2024 10:26 AM EDT Temperature - - Respiratory Rate 16 06/08/2023 10:05 AM EST Oxygen Saturation 98% 07/03/2024 10:26 AM EDT Inhaled Oxygen Concentration - - Weight 118.4 kg (261 lb) 07/03/2024 10:26 AM EDT Height 182.9 cm (6') 07/03/2024 10:26 AM EDT Body Mass Index 35.4 07/03/2024 10:26 AM EDT Plan of Treatment Upcoming Encounters Date Type Department Care Team (Late st Contact Info) Description 01/23/2025 9:00 AM EDT Office Visit [facility] [address] [id number] Danielito Friedman MD [address] [place] [address] DR HERNANDEZ [facility], [place] [id number] Health Maintenance Due Date Last Done Comments Wellness Exam Medicare 1953 Kidney Health: uACR 12/24/1959 Diabetic Eye Exam 12/24/1967 Hemoglobin A1c 12/24/1967 Hepatitis C Screening 12/24/1967 DTaP/TDaP/Td (1 - Tdap) 1968 Pneumococcal Vaccine 50+ (1 of 2 - PCV) 1968 Cologuard 1994 Colon Cancer Screening 1994 Colonoscopy 1994 FIT 1994 Sigmoidoscopy 1994 Virtual Colonography 1994 Zoster (1 of 2) 12/24/1999 RSV or 60+ (1 - Ris k 60-74 years 1-dose series) 2009 Kidney Health: eGFR 07/17/2022 07/17/2021 Lipids 07/17/2022 07/17/2021 COVID-19 Vaccine (1 - 2023-2 5 season) 2023 Influenza Vaccine (#1) 2024 Hepatitis B Vaccine Aged Out No longe r eligible based on patient's age to complete this topic Meningococcal B Vaccine Aged Out No l onger eligible based on patient's age to complete this topic Procedures Procedure Name Priority Date/Time Associated Diagnosis Comments COMPREHENSIVE METABOLIC PANEL Routine 07/17/2021 LIPID SCREEN Routine 07/17/2021 from Last 3 Months or Most Recently Relevant to Health Maintenance Results * (ABNORMAL) LIPID SCREEN (07/17/2021) Cholesterol, Total 163 Comment:VITAMIN D, 25- HYDRO XY 30.6 HDL 58 35 - 70 MG/DL Comment:VITAMIN B-12 336 Triglyceride 167(A) 40 - 160 MG/DL LDL Calculated 77 0 - 160 MG/DL VLDL Cholesterol Alek 28 LDl/HDL Ratio 1.3 Uric Acid, Serum 4.2 PSA Total 6.7 NG/ML Blood VENOUS BLOOD / Unknown 07/17/2021 Jill Fairchild CORRECTIONAL THERAPY TEACHER CHEMISTRY ORDERABLES Final Res ult * COMPREHENSIVE METABOLIC PANEL (07/17/2021) Albumin/Globulin Ratio 1.8 (CALC) ALT 34 10 - 40 IU/L AST 21 14 - 40 IU/L Bili Total 0.6 0.1 - 1.4 mg/dL Globulin 2.2 G/DL(CALC) Albumin, SerPl QN 4.0 Protein, Total 6.2 Calcium 9.00 8.70 - 10.70 MG/DL Chloride 103 99 - 108 MMOL/L Potassium 4.1 3.4 - 5.3 MMOL/L Sodium 139 137 - 147 MMOL/L BUN/Creatinine Ratio 17 BUN 15 4 - 21 MG/DL Glucose Whole Blood 225 MG/DL CO2 19 MMOL/L Alkaline Phosphatase 109 EGFR 92.0 ML/MIN/1.7 3M2 TSH 2.940 0.400 - 4.500 MCIU/ML Blood VENOUS BLOOD / Unknown 07/17/2021 Historical Provider CHEMISTRY ORDERABLES Final R esult from Last 3 Months or Most Recently Relevant to Health Maintenance Insurance [employer] MEDICARE PPO MR Care Teams Biometric Fingerprinting Technician Relationship Specialty Start Date End Date Thom Miller MD [address] [place] [address] [address] [place] [address] PCP - General Family Medicine 03/10/16 Tyrese Bonilla MD [address] [place] [address] [place] [address] Physician Internal Medicine-Cardiovascular Disease 05/04/11
--- OUTSIDE RECORDS SUMMARY | 2024-10-10 10:17 | XMS_ITS | Encounter Summary ---
Author Organization [place] [address] Care Team Providers Care Glove Cutter Name Role Phone Tyrese Bonilla MD Unavailable [phone] Provider, Not In [facility] Primary Care Provider Unav ailable Thom Miller MD Primary Care Provider [phone] Encounter Details Date Type Department Care Team (Late st Contact Info) Description 09/12/2009 Orders Only [facility] [place] [address] [phone] Reji Carney MD [address] [place] [address] [place] [place] [address] Social History Tobacco Use Types Packs/Day Years Used Date Smoking Tobacco: Never Assessed Sex and Gender Information Value Date Recorded Sex Assigned at Not on file Legal Sex Male 8:16 PM EDT Gender Identity Not on file Sexual Orientation Not on file documented as of this encounter Plan of Treatment Upcoming Encounters Date Type Department Care Team (Late st Contact Info) Description 01/23/2025 9:00 AM EDT Office Visit [facility] [place] [address] [place], [place] [phone] Danielito Friedman MD [address] [place] [address] [place] [place] [address] documented as of this encounter Procedures Procedure Name Priority Date/Time Associated Diagnosis Comments ECHO - HISTORICAL Routine 09/12/2009 12: 00 AM EDT documented in this encounter Results * ECHO - HISTORICAL (09/12/2009 12:00 AM EDT) Anatomical Region Laterality Modality Other 09/12/2009 Narrative 04/07/2011 1:00 AM EST NOTICE: This report was electronically copied on 05/21/2011 from historical data generated by a practice prior to that practice using [facility] for Medical Records. Performing Provider: ODILON Reji Carney MD IMG ECHO ORDERABLES Final Result documented in this encounter Visit Diagnoses Not on filedocumented in this encounter Care Teams Glove Cutter Relationship Specialty Start Date End Date Provider, Not In Epic PCP - General 03/06/13 03/09/16 Thom Miller MD [facility] [address] [place] [id number] PCP - General Family Medicine 03/10/16 Tyrese Bonilla MD [address] [place] [phone] Physician Internal Medicine-Cardiovascular Disease 05/04/11 documented as of this encounter
== END 2024-10-09 23:59 | disposition home or self-care (01) ==
LOC: LAB.DROPOF 10-10 10:06
PROVIDERS: PCP Family Medicine; Visit Provider Family Medicine
DX: E87.6 Hypokalemia (principal)
CPT/HCPCS: 80048